=== PATIENT | female | born 1955 | race Caucasian/White ===

== ENCOUNTER 2024-03-29 17:54 | Emergency (ER) | payer OTHER ==
[2024-03-29 18:02] VITALS: TEMP 98.1
--- NOTE | 2024-03-29 18:29 | ED ---
General Adult HPI - General Chief complaint: Allergic Reaction Stated complaint: allergic reaction Time Seen by Provider: 03/29/24 18:00 Source: patient, RN notes reviewed, old records reviewed Mode of arrival: EMS Limitations: no limitations - History of Present Illness Initial comments: This is a 68-year-old female who presents to the emergency department after being stung by a wasp on the right hand. 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 Patient states she did not feel like her throat was closing but she was getting swelled up on her hand and having hives all over her body and her eyes were gets swollen. - Related Data Previous Rx's Medication Instructions Recorded predniSONE [Deltasone] 40 mg PO DAILY #8 tab 03/29/24 Allergies Allergy/AdvReac Type Severity Reaction Status Date / Time bee venom protein (honey bee) Allergy Anaphylaxis Verified 03/29/24 18:03 latex Allergy Rash/Hives Verified 03/29/24 18:03 naproxen AdvReac Rash/Hives Verified 03/29/24 18:03 Review of Systems ROS Statement: Those systems with pertinent positive or pertinent negative responses have been documented in the HPI. ROS Other: All systems not noted in ROS Statement are negative. Past Medical History Past Medical History: No Reported History Past Surgical History: Orthopedic Surgery General Exam - General Exam Comments Initial Comments: GENERAL: Patient is well-developed and well-nourished. Patient is nontoxic and well- hydrated and is in mild distress. ENT: Neck is soft and supple. No significant lymphadenopathy is noted. Oropharynx is clear. Moist mucous membranes. Neck has full range of motion without eliciting any pain. EYES: The sclera were anicteric and conjunctiva were pink and moist. Extraocular movements were intact and pupils were equal round and reactive to light. Eyelids were unremarkable. PULMONARY: Unlabored respirations. Good breath sounds bilaterally. No audible rales rhonchi or wheezing was noted. CARDIOVASCULAR: There is a regular rate and rhythm without any murmurs gallops or rubs. ABDOMEN: Soft and nontender with normal bowel sounds. SKIN: Patient's right hand is very swollen patient also has some hives on the left arm and upper chest. Patient is eyelids are also mildly swollen NEUROLOGIC: Patient is alert and oriented x3. Cranial nerves II through XII are grossly intact. Motor and sensory are also intact. Normal speech, volume and content. Symmetrical smile. MUSCULOSKELETAL: Normal extremities with adequate strength and full range of motion. No lower extremity swelling or edema. No calf tenderness. LYMPHATICS: No significant lymphadenopathy is noted PSYCHIATRIC: Normal psychiatric evaluation. Limitations: no limitations Course Vital Signs 03/29/24 17:59 Temperature 98.1 F Pulse Rate 92 Respiratory 20 Rate Blood Pressure 157/89 O2 Sat by Pulse 96 Oximetry Medical Decision Making - Medical Decision Making Was pt. sent in by a medical professional or institution (, PA, FULFILLMENT COORDINATOR, urgent care, hospital, or penitentiary...) When possible be specific @ -No Did you speak to anyone other than the patient for history (EMS, parent, family, police, friend...)? What history was obtained from this source @ -EMS gave the history and route. Patient was given [address] Did you review nursing and triage notes (agree or disagree)? Why? @ -I reviewed and agree with nursing and triage notes Were old charts reviewed (outside hosp., previous admission, EMS record, old EKG, old radiological studies, urgent care reports/EKG's, penitentiary records)? Report findings @ -No old charts were reviewed Differential Diagnosis? @ -Reaction, anaphylaxis, this is not an all-inclusive list EKG interpreted by me (3pts min.). @ -As above X-rays interpreted by me (1pt min.). @ -None done CT interpreted by me (1pt min.). @ -None done U/S interpreted by me (1pt. min.). @ -None done What testing was considered but not performed or refused? (CT, X-rays, U/S, labs)? Why? @ -None What meds were considered but not given or refused? Why? @ -None Did you discuss the management of the patient with other professionals (professionals i.e. , TIFFANI, FULFILLMENT COORDINATOR, lab, RT, psych nurse, social worker masters, slumber room attendant, teacher, control officer, case mgr)? Give summary @ -No Was smoking cessation discussed for >3mins.? @ -No Was critical care preformed (if so, how long)? @ -No Were there social determinants of health that impacted care today? How? (Homelessness, low income, unemployed, alcoholism, drug addiction, transportation, low edu. Level, literacy, decrease access to med. care, shelter, rehab)? @ -No Was there de-escalation of care discussed even if they declined (Discuss DNR or withdrawal of care, Hospice)? DNR status @ -No What co-morbidities impacted this encounter? (DM, HTN, Smoking, COPD, CAD, Cancer, CVA, ARF, Chemo, Hep., AIDS, mental health diagnosis, sleep apnea, morbid obesity)? @ -None Was patient admitted / discharged? Hospital course, mention meds given and route, prescriptions, significant lab abnormalities, going to OR and other pertinent info. @ -Patient received Benadryl and route I gave her 25 more milligrams of Benadryl here at the hospital also Solu-Medrol and Pepcid. I went back and reevaluated the patient after an hour and a half and she was doing much better she had no difficulty breathing or throat closing. Undiagnosed new problem with uncertain prognosis? @ -No Drug Therapy requiring intensive monitoring for toxicity (Heparin, Nitro, Insulin, Cardizem)? @ -No Were any procedures done? @ -No Diagnosis/symptom? @ -Allergic reaction Acute, or Chronic, or Acute on Chronic? @ -Acute Uncomplicated (without systemic symptoms) or Complicated (systemic symptoms)? @ -Complicated Side effects of treatment? @ -No Exacerbation, Progression, or Severe Exacerbation? @ -No Poses a threat to life or bodily function? How? (Chest pain, [place], [place], pneumonia, PE, COPD, DKA, ARF, appy, cholecystitis, CVA, Diverticulitis, Homicidal, Suicidal, threat to staff... and all critical care pts) @ -No Disposition Clinical Impression: Allergic reaction Disposition: HOME SELF-CARE Instructions (If sedation given, give patient instructions): General Allergic Reaction (ED) Prescriptions: predniSONE [Deltasone] 40 mg PO DAILY #8 tab Is patient prescribed a controlled substance at d/c from ED?: No Referrals: Zandra Madrigal [Primary Care Provider] - 1-2 days Time of Disposition: 19:29
[2024-03-29] MEDS: diphenhydrAMINE 50 MG/ML 1 ML VIAL IVP STA (18:50)
[2024-03-29] MEDS: methylPREDNISolone SOD SUCCI 125 MG/2 ML VIAL IV STA (18:51)
[2024-03-29] MEDS: FAMOTIDINE 20 MG/2 ML VIAL IV STA (18:52)
[2024-03-29] MEDS: SODIUM CHLORIDE 0.9% 500 ML 500 ML IV ONE (18:52)
[2024-03-29 20:13] VITALS: BP 116/94; PULSE 74; RESP 18
== END 2024-03-29 19:47 | disposition home or self-care (01) ==
LOC: EC 17:54
CPT/HCPCS: 96361; 96374; 96375; 99284